=== PATIENT | male | born 1965 | race African-American/Black ===

== ENCOUNTER 2017-03-10 16:03 | Emergency (ER) | payer BC ==
--- NOTE | 2017-03-10 17:59 | RAD ---
TWO VIEW CHEST: History: Cough. Comparison: 06-29-13 FINDINGS: Lung alan are clear. No infiltrate identified. Heart and mediastinum unremarkable. IMPRESSION: No evidence of infiltrates. POS: [facility]
== END 2017-03-10 18:22 | disposition home or self-care (01) ==
LOC: ERS 16:03
DX: J20.9 Acute bronchitis, unspecified (principal); E11.9 Type 2 diabetes mellitus without complications; F17.210 Nicotine dependence, cigarettes, uncomplicated; I10 Essential (primary) hypertension
CPT/HCPCS: 71020; 94640; 99406; J7620

== ENCOUNTER 2017-07-16 18:21 | Emergency (ER) | payer BC ==
[2017-07-16 19:14] LABS: #Eosinphils 0.1 thou/uL (0.0-0.7); #Lymphocytes 2.3 thou/uL (1.20-3.40); #Monocytes 0.6 thou/uL (0.11-0.59); #Neutrophils 4.4 thou/uL (1.40-6.50); %Basophils 0.4 % (0.0-1.0); %Eosinophils 0.7 % (0.0-10.0); %Lymphocytes 30.8 % (21.0-51.0); %Monocytes 8.3 % (0.0-10.0); %Neutrophils 59.9 % (42.0-75.0); Hemoglobin 14.8 g/dL (14.0-18.0); Mean Corpuscular HGB CONC 32.9 g/dL (32.0-36.0); Mean Corpuscular Hemoglobin 29.4 pg (27.0-31.0); Mean Corpuscular Volume 89.4 fl (80.0-94.0); Mean Platelet Volume 7.2 fL (7.4-10.4); Platelet Count 225 thou/uL (130-400); RBC Distribution Width 11.8 % (11.5-14.5); Red Blood Cell (RBC) Count 5.03 mill/uL (4.70-6.10); White Blood Cell (WBC) Count 7.4 thou/uL (4.8-10.8)
[2017-07-16 19:43] LABS: ALT (SGPT) 29 U/L (8-55); AST (SGOT) 18 U/L (5-34); Albumin 4.4 g/dL (3.5-5.0); Alkaline Phosphatase 101 U/L (40-150); Anion Gap 14 mmol/L (10-20); BUN (Urea Nitrogen) 15 mg/dL (8.9-20.6); Bilirubin, Total 0.5 mg/dL (0.2-1.2); Calc. Creatinine Clearance 0 mL/min (70-130); Calcium 9.7 mg/dL (7.8-10.44); Carbon Dioxide 25 mmol/L (22-29); Chloride 102 mmol/L (98-107); Estimated GFR-MDRD Greater than 90; Globulin 3.7 g/dL (2.4-3.5); Glucose 276 mg/dL (70-105); Potassium 4.6 mmol/L (3.5-5.1); Protein, Total 8.1 g/dL (6.0-8.3); Sodium 136 mmol/L (136-145)
== END 2017-07-16 19:55 | disposition home or self-care (01) ==
LOC: ERS 18:21
DX: E11.65 Type 2 diabetes mellitus with hyperglycemia (principal); E78.5 Hyperlipidemia, unspecified; I10 Essential (primary) hypertension; I48.91 Unspecified atrial fibrillation; F17.210 Nicotine dependence, cigarettes, uncomplicated; Z79.899 Other long term (current) drug therapy; Z79.84 Long term (current) use of oral hypoglycemic drugs
CPT/HCPCS: 36415; 36416; 80053; 85025; 99284

== ENCOUNTER 2017-12-13 02:32 | Emergency (ER) | payer BC ==
[2017-12-13] MEDS ORDERED: HYDROcodone/Acetaminophen 5/325 mg Tablet ONE (03:23)
== END 2017-12-13 03:26 | disposition home or self-care (01) ==
LOC: ERS 02:32
DX: L73.2 Hidradenitis suppurativa (principal); E78.5 Hyperlipidemia, unspecified; E11.9 Type 2 diabetes mellitus without complications; Z79.84 Long term (current) use of oral hypoglycemic drugs; I10 Essential (primary) hypertension; I48.91 Unspecified atrial fibrillation; F17.210 Nicotine dependence, cigarettes, uncomplicated; Z79.899 Other long term (current) drug therapy
CPT/HCPCS: 10060

== ENCOUNTER 2017-12-22 15:11 | Emergency (ER) | payer BC ==
--- NOTE | 2017-12-22 15:41 | RAD ---
PA AND LATERAL OF THE CHEST: INDICATION: Cough and wheezing. COMPARISON: Prior exam dated 03/10/17. FINDINGS: There is an area of subsegmental volume loss within the lingula. No airspace consolidation is eviden t. No pleural effusion is noted. Heart size is normal-appearing. No acute osseous abnormality is e vident. IMPRESSION: Area of subsegmental volume loss within the lingula. No additional abnormality is seen. POS: [facility]
== END 2017-12-22 15:58 | disposition home or self-care (01) ==
LOC: SCSER 15:11
DX: J20.9 Acute bronchitis, unspecified (principal); E78.5 Hyperlipidemia, unspecified; E11.9 Type 2 diabetes mellitus without complications; I10 Essential (primary) hypertension; F17.290 Nicotine dependence, other tobacco product, uncomplicated
CPT/HCPCS: 71046; J7620

== ENCOUNTER 2023-02-23 23:31 | Inpatient (IN) | payer SELFPAY ==
[2023-02-24] MEDS ORDERED: Ondansetron PF 4 MG/2 ML Vial IVP PRN (00:22)
[2023-02-24] MEDS ORDERED: Ondansetron ODT 4 MG TAB PO PRN (00:22)
[2023-02-24] MEDS ORDERED: Acetaminophen 325 MG TAB PO PRN (00:22)
[2023-02-24 00:32] VITALS: BMI 34.7
[2023-02-24] MEDS ORDERED: Dextrose 5%-Lactated Ringers 1,000 ML IV SCH (01:00)
[2023-02-24] MEDS ORDERED: Dextrose 5% in Water 1,000 ML IV PRN (01:42)
[2023-02-24] MEDS ORDERED: Glucagon 1 MG/ML KIT IM PRN (01:42)
[2023-02-24] MEDS ORDERED: HumaLOG 300 UNITS/3 ML VIAL SC PRN (01:42)
[2023-02-24] MEDS ORDERED: Dextrose 50% Abboject 50 ML SYRINGE SLOW IVP PRN (01:42)
[2023-02-24] MEDS: HumaLOG 300 UNITS/3 ML VIAL SC PRN ×3 (02:11→17:51)
[2023-02-24] MEDS ORDERED: Ketorolac Tromethamine 30 MG/ML VIAL IVP SCH (02:15)
[2023-02-24] MEDS: Ketorolac Tromethamine 30 MG/ML VIAL IVP PRN ×2 (06:04→12:48)
[2023-02-24 06:48] LABS: #Eosinphils 0.1 thou/uL (0.0-0.7); #Monocytes 0.8 thou/uL (0.11-0.59); #Neutrophils 10.3 thou/uL (1.40-6.50); %Basophils 0.3 % (0.0-1.0); %Eosinophils 0.4 % (0.0-10.0); %Lymphocytes 16.8 % (21.0-51.0); %Neutrophils 76.2 % (42.0-75.0); Hematocrit 41.1 % (42.0-52.0); Hemoglobin 12.6 g/dL (14.0-18.0); Mean Corpuscular HGB CONC 30.7 g/dL (32.0-36.0); Mean Corpuscular Hemoglobin 27.9 pg (27.0-31.0); Mean Corpuscular Volume 90.9 fl (78.0-98.0); Mean Platelet Volume 9.5 fL (7.4-10.4); Platelet Count 247 10x3/uL (130-400); RBC Distribution Width 12.5 % (11.5-14.5); Red Blood Cell (RBC) Count 4.52 mill/uL (4.70-6.10); White Blood Cell (WBC) Count 13.5 10x3/uL (4.8-10.8)
[2023-02-24 07:16] LABS: ALT (SGPT) 10 U/L (8-55); AST (SGOT) 10 U/L (5-34); Albumin 3.6 g/dL (3.5-5.0); Alkaline Phosphatase 79 U/L (40-110); Anion Gap 11 mmol/L (10-20); BUN (Urea Nitrogen) 6 mg/dL (8.4-25.7); Bilirubin, Total 0.6 mg/dL (0.2-1.2); Calc. Creatinine Clearance 190 mL/min (70-130); Calcium 8.9 mg/dL (7.8-10.44); Carbon Dioxide 23 mmol/L (22-29); Chloride 106 mmol/L (98-107); Estimated GFR 107; Globulin 3.7 g/dL (2.4-3.5); Glucose 231 mg/dL (70-105); Potassium 3.6 mmol/L (3.5-5.1); Protein, Total 7.3 g/dL (6.0-8.3); Sodium 136 mmol/L (136-145)
[2023-02-24] MEDS ORDERED: fentaNYL PF 100 MCG/2 ML SYRINGE ONE (08:44)
[2023-02-24] MEDS ORDERED: EPINEPHrine 1 MG/ML VIAL ONE (10:13)
[2023-02-24] MEDS ORDERED: Bupivacaine 0.25% HCL 30 ML VIAL ONE (10:14)
[2023-02-24] MEDS ORDERED: Sodium Chloride 0.9% 100 ML ONE (10:31)
[2023-02-24] MEDS ORDERED: CEFAZOLIN 2 GM VIAL ONE (10:31)
[2023-02-24] MEDS ORDERED: Lidocaine 1% PF 5 ML VIAL ONE (10:42)
[2023-02-24] MEDS ORDERED: Rocuronium Bromide 10 MG/ML (10ML VIAL) ONE (10:42)
[2023-02-24] MEDS ORDERED: PROPOFOL 200 MG/20 ML VIAL ONE (10:42)
[2023-02-24] MEDS ORDERED: Ondansetron PF 4 MG/2 ML Vial ONE (10:42)
[2023-02-24] MEDS ORDERED: NEOSTIGMINE 3 MG/3 ML SYR 3 MG/3 ML SYRINGE ONE (10:42)
[2023-02-24] MEDS ORDERED: Glycopyrrolate 0.2 MG/ML 5 ML SYRINGE ONE (10:42)
[2023-02-24] MEDS ORDERED: Ondansetron HCl/PF 4 MG/2 ML Vial IVP PRN (11:14)
[2023-02-24] MEDS ORDERED: Promethazine HCl 25 MG/ML VIAL IM PRN (11:14)
[2023-02-24] MEDS ORDERED: PACU-Morphine 4MG/ML VIAL SLOW IVP PRN (11:14)
[2023-02-24] MEDS ORDERED: SUGAMMADEX SODIUM 200 MG/2 ML VIAL ONE (11:26)
[2023-02-24] MEDS ORDERED: fentaNYL 50 mcg/mL 1 mL Vial ONE ×3 (11:35→12:10)
[2023-02-24] MEDS: Famotidine 20 MG TAB PO SCH ×2 (12:24→20:16)
[2023-02-24] MEDS: Famotidine/PF 20 mg/2ml Vial SLOW IVP SCH ×2 (12:24→20:17)
[2023-02-24] MEDS: Insulin Glargine 30 UNITS/0.3 ML VIAL SC SCH ×2 (12:24→20:23)
[2023-02-24] MEDS: Lisinopril 20 MG TAB PO SCH (12:24)
[2023-02-24] MEDS ORDERED: Morphine 2 MG/ML VIAL SLOW IVP PRN (13:35)
[2023-02-24] MEDS ORDERED: Vancomycin (BATCH) 2 GM in Premix 1 BAG IVPB SCH (13:45)
[2023-02-24] MEDS ORDERED: Lisinopril 20 MG TAB PO SCH (13:45)
[2023-02-24] MEDS ORDERED: HYDROcodone/Acetaminophen 5/325 mg Tablet PO SCH (13:45)
[2023-02-24] MEDS ORDERED: Piperacillin/Tazobactam 3.375 GM in Sodium Chloride 0.9% 100 ML IVPB SCH ×2 (14:00→20:00)
[2023-02-24] MEDS ORDERED: Clindamycin/D5W 900 MG in Premix 1 BAG IVPB SCH (18:00)
[2023-02-24] MEDS: HYDROcodone/Acetaminophen 5/325 mg Tablet PO PRN (20:14)
[2023-02-24] MEDS: Piperacillin/Tazobactam 3.375 GM in Sodium Chloride 0.9% 100 ML IVPB SCH (20:17)
[2023-02-25] MEDS: HYDROcodone/Acetaminophen 5/325 mg Tablet PO PRN ×2 (04:13→09:33)
[2023-02-25] MEDS ORDERED: Vancomycin (BATCH) 2 GM in Premix 1 BAG IVPB SCH (05:00)
[2023-02-25 06:11] LABS: #Eosinphils 0.1 thou/uL (0.0-0.7); #Monocytes 0.8 thou/uL (0.11-0.59); #Neutrophils 10.1 thou/uL (1.40-6.50); %Basophils 0.2 % (0.0-1.0); %Eosinophils 0.7 % (0.0-10.0); %Lymphocytes 15.6 % (21.0-51.0); %Neutrophils 77.1 % (42.0-75.0); Hematocrit 37.5 % (42.0-52.0); Hemoglobin 11.8 g/dL (14.0-18.0); Mean Corpuscular HGB CONC 31.5 g/dL (32.0-36.0); Mean Corpuscular Hemoglobin 28.1 pg (27.0-31.0); Mean Corpuscular Volume 89.3 fl (78.0-98.0); Mean Platelet Volume 9.7 fL (7.4-10.4); Platelet Count 259 10x3/uL (130-400); RBC Distribution Width 12.2 % (11.5-14.5); White Blood Cell (WBC) Count 13.1 10x3/uL (4.8-10.8)
[2023-02-25] MEDS: Piperacillin/Tazobactam 3.375 GM in Sodium Chloride 0.9% 100 ML IVPB SCH (06:27)
[2023-02-25] MEDS: HumaLOG 300 UNITS/3 ML VIAL SC PRN ×2 (06:30→12:03)
[2023-02-25 06:31] LABS: Anion Gap 12 mmol/L (10-20); BUN (Urea Nitrogen) 7 mg/dL (8.4-25.7); Calc. Creatinine Clearance 183 mL/min (70-130); Calcium 8.4 mg/dL (7.8-10.44); Carbon Dioxide 24 mmol/L (22-29); Chloride 104 mmol/L (98-107); Estimated GFR 106; Glucose 217 mg/dL (70-105); Potassium 3.9 mmol/L (3.5-5.1); Sodium 136 mmol/L (136-145)
[2023-02-25] MEDS: Lisinopril 20 MG TAB PO SCH (09:33)
[2023-02-25] MEDS: Famotidine 20 MG TAB PO SCH (09:33)
[2023-02-25] MEDS: Insulin Glargine 30 UNITS/0.3 ML VIAL SC SCH (09:34)
[2023-02-25] MEDS: Famotidine/PF 20 mg/2ml Vial SLOW IVP SCH (12:00)
[2023-02-25 12:08] VITALS: BP 178/92; TEMP 98
== END 2023-02-25 14:25 | disposition home or self-care (01) | DRG 581 ==
LOC: SJJU 02-24 00:10 → OBSVTOIN 02-24 13:39
PROVIDERS: ADMIT Student in an Organized Health Care Education/Training Program; ATTEND Family Medicine
PROC: 0W960ZZ Drainage of Neck, Open Approach (ICD-10-PCS; principal; 2023-02-24)
DX: L02.11 Cutaneous abscess of neck (principal); E11.9 Type 2 diabetes mellitus without complications; I10 Essential (primary) hypertension; E78.5 Hyperlipidemia, unspecified; F17.210 Nicotine dependence, cigarettes, uncomplicated; Z91.018 Allergy to other foods; Z79.4 Long term (current) use of insulin; Z79.899 Other long term (current) drug therapy
CPT/HCPCS: 36415; 36416; 80048; 80053; 85025; 87070; 87077; 87186; 87205; 93005; 93010; 96374; 96376; 97139; G0378; J0171; J1815; J1885; J2272; J2405; J2543; J2704; J3010; J3370; J3490; Q0162; S0020

== ENCOUNTER 2023-05-04 17:26 | Inpatient (IN) | payer OTHER ==
[2023-05-04] MEDS ORDERED: Ondansetron ODT 4 MG TAB PO PRN (21:34)
[2023-05-04] MEDS ORDERED: Acetaminophen 650 MG Suppository PR PRN (21:34)
[2023-05-04] MEDS ORDERED: Acetaminophen 325 MG TAB PO PRN (21:34)
[2023-05-04] MEDS ORDERED: Ondansetron PF 4 MG/2 ML Vial IVP PRN (21:34)
[2023-05-04] MEDS: Morphine 4 MG/ML VIAL SLOW IVP PRN (21:38)
[2023-05-04 21:58] VITALS: BMI 33.6
[2023-05-05] MEDS ORDERED: Piperacillin/Tazobactam 3.375 GM in Sodium Chloride 0.9% 100 ML IVPB SCH (00:30)
[2023-05-05] MEDS: Sodium Chloride 0.9% 1,000 ML IV SCH ×2 (01:51→09:23)
[2023-05-05] MEDS: Insulin Glargine 30 UNITS/0.3 ML VIAL SC SCH ×3 (01:52→22:36)
[2023-05-05] MEDS: Morphine 4 MG/ML VIAL SLOW IVP PRN (02:45)
[2023-05-05] MEDS: Piperacillin/Tazobactam 3.375 GM in Sodium Chloride 0.9% 100 ML IVPB SCH ×3 (05:55→22:36)
[2023-05-05 06:29] LABS: #Monocytes 0.8 thou/uL (0.11-0.59); #Neutrophils 8.6 thou/uL (1.40-6.50); %Basophils 0.2 % (0.0-1.0); %Eosinophils 0.3 % (0.0-10.0); %Lymphocytes 20.8 % (21.0-51.0); %Monocytes 6.3 % (0.0-10.0); %Neutrophils 72.1 % (42.0-75.0); Hematocrit 42.3 % (42.0-52.0); Hemoglobin 13.5 g/dL (14.0-18.0); Mean Corpuscular HGB CONC 31.9 g/dL (32.0-36.0); Mean Corpuscular Hemoglobin 28.1 pg (27.0-31.0); Mean Corpuscular Volume 87.9 fl (78.0-98.0); Mean Platelet Volume 9.8 fL (7.4-10.4); Platelet Count 304 10x3/uL (130-400); RBC Distribution Width 12.2 % (11.5-14.5); Red Blood Cell (RBC) Count 4.81 mill/uL (4.70-6.10)
[2023-05-05 06:39] LABS: Hemoglobin A1c 11.8 % (4.0-6.0)
[2023-05-05 07:40] LABS: Anion Gap 10 mmol/L (10-20); BUN (Urea Nitrogen) 8 mg/dL (8.4-25.7); Calc. Creatinine Clearance 171 mL/min (70-130); Calcium 8.5 mg/dL (7.8-10.44); Carbon Dioxide 24 mmol/L (22-29); Chloride 104 mmol/L (98-107); Estimated GFR 104; Glucose 226 mg/dL (70-105); Potassium 3.7 mmol/L (3.5-5.1); Sodium 134 mmol/L (136-145)
[2023-05-05] MEDS ORDERED: FLU VACC QS2023-24(6MOS UP)/PF 60 MCG/0.5 ML SYRINGE IM ONE (09:00)
[2023-05-05] MEDS ORDERED: Lisinopril 20 MG TAB PO SCH (09:00)
[2023-05-05] MEDS: Lisinopril 20 MG TAB PO SCH (09:24)
[2023-05-05] MEDS ORDERED: VANCOMYCIN IVPB PRN (13:11)
[2023-05-05] MEDS ORDERED: Glucagon 1 MG/ML KIT IM PRN (13:34)
[2023-05-05] MEDS ORDERED: Dextrose 50% Abboject 50 ML SYRINGE SLOW IVP PRN (13:34)
[2023-05-05] MEDS ORDERED: Dextrose 5% in Water 1,000 ML IV PRN (13:34)
[2023-05-05] MEDS: Vancomycin (BATCH) 1.5 GM in Premix 1 BAG IVPB SCH (15:04)
[2023-05-05] MEDS ORDERED: Lidocaine 1% PF 5 ML VIAL ONE (15:49)
[2023-05-05] MEDS ORDERED: PROPOFOL 40 ML ONE (15:49)
[2023-05-05] MEDS ORDERED: Rocuronium Bromide 10 MG/ML (10ML VIAL) ONE (15:49)
[2023-05-05] MEDS ORDERED: Dexamethasone 4 mg/ml Vial ONE (15:49)
[2023-05-05] MEDS ORDERED: SUGAMMADEX SODIUM 200 MG/2 ML VIAL ONE (15:49)
[2023-05-05] MEDS ORDERED: Ondansetron PF 4 MG/2 ML Vial ONE ×2 (15:49→17:19)
[2023-05-05] MEDS ORDERED: fentaNYL 50 mcg/mL 1 mL Vial ONE ×3 (15:50→17:18)
[2023-05-05] MEDS ORDERED: Bupivacaine PF 0.5% 30 ML VIAL ONE (16:33)
[2023-05-05] MEDS ORDERED: EPINEPHrine 1 MG/ML VIAL ONE (16:33)
[2023-05-05] MEDS ORDERED: Lidocaine 2% 6 ML (Jelly) SYR ONE (16:48)
[2023-05-05] MEDS ORDERED: Ibuprofen 100 MG/5 ML UDCUP PO PRN (17:34)
[2023-05-05] MEDS ORDERED: Acetaminophen 500 MG TAB PO SCH (17:45)
[2023-05-05] MEDS: traMADol HCl 50 MG TAB PO PRN (17:55)
[2023-05-05] MEDS: Acetaminophen 500 MG TAB PO SCH (22:34)
[2023-05-06] MEDS: Vancomycin (BATCH) 1.5 GM in Premix 1 BAG IVPB SCH ×2 (02:15→14:26)
[2023-05-06 04:50] LABS: #Monocytes 1.3 thou/uL (0.11-0.59); #Neutrophils 11.4 thou/uL (1.40-6.50); %Basophils 0.2 % (0.0-1.0); %Eosinophils 0.1 % (0.0-10.0); %Lymphocytes 15.8 % (21.0-51.0); %Monocytes 8.2 % (0.0-10.0); %Neutrophils 75.2 % (42.0-75.0); Hematocrit 43.9 % (42.0-52.0); Hemoglobin 13.7 g/dL (14.0-18.0); Mean Corpuscular HGB CONC 31.2 g/dL (32.0-36.0); Mean Corpuscular Hemoglobin 27.7 pg (27.0-31.0); Mean Corpuscular Volume 88.9 fl (78.0-98.0); Mean Platelet Volume 9.9 fL (7.4-10.4); Platelet Count 313 10x3/uL (130-400); RBC Distribution Width 12.4 % (11.5-14.5); Red Blood Cell (RBC) Count 4.94 mill/uL (4.70-6.10); White Blood Cell (WBC) Count 15.2 10x3/uL (4.8-10.8)
[2023-05-06 05:16] LABS: Anion Gap 14 mmol/L (10-20); BUN (Urea Nitrogen) 17 mg/dL (8.4-25.7); Calc. Creatinine Clearance 66 mL/min (70-130); Calcium 8.5 mg/dL (7.8-10.44); Carbon Dioxide 25 mmol/L (22-29); Chloride 103 mmol/L (98-107); Estimated GFR 38; Glucose 294 mg/dL (70-105); Sodium 138 mmol/L (136-145)
[2023-05-06] MEDS: Piperacillin/Tazobactam 3.375 GM in Sodium Chloride 0.9% 100 ML IVPB SCH ×2 (05:50→12:12)
[2023-05-06] MEDS: Acetaminophen 500 MG TAB PO SCH ×4 (08:51→20:40)
[2023-05-06] MEDS: Lisinopril 20 MG TAB PO SCH (08:52)
[2023-05-06] MEDS: Morphine 4 MG/ML VIAL SLOW IVP PRN (08:52)
[2023-05-06] MEDS: Insulin Glargine 30 UNITS/0.3 ML VIAL SC SCH ×2 (08:52→20:40)
[2023-05-06] MEDS: Sodium Chloride 0.9% 1,000 ML IV SCH ×2 (10:24→20:42)
[2023-05-06] MEDS: HumaLOG 300 UNITS/3 ML VIAL SC PRN ×2 (11:47→16:06)
[2023-05-06] MEDS: traMADol HCl 50 MG TAB PO PRN ×2 (12:12→20:44)
[2023-05-07 02:19] LABS: #Neutrophils 8.9 thou/uL (1.40-6.50); %Basophils 0.2 % (0.0-1.0); %Eosinophils 0.2 % (0.0-10.0); %Lymphocytes 18.1 % (21.0-51.0); %Monocytes 8.4 % (0.0-10.0); %Neutrophils 72.7 % (42.0-75.0); Hematocrit 42.6 % (42.0-52.0); Hemoglobin 13.3 g/dL (14.0-18.0); Mean Corpuscular HGB CONC 31.2 g/dL (32.0-36.0); Mean Corpuscular Hemoglobin 27.7 pg (27.0-31.0); Mean Corpuscular Volume 88.6 fl (78.0-98.0); Mean Platelet Volume 9.7 fL (7.4-10.4); Platelet Count 315 10x3/uL (130-400); RBC Distribution Width 12.5 % (11.5-14.5); Red Blood Cell (RBC) Count 4.81 mill/uL (4.70-6.10); White Blood Cell (WBC) Count 12.2 10x3/uL (4.8-10.8)
[2023-05-07 02:38] LABS: Vancomycin, Trough 24.1 ug/mL
[2023-05-07 03:40] LABS: Anion Gap 12 mmol/L (10-20); BUN (Urea Nitrogen) 22 mg/dL (8.4-25.7); CRP (Inflammatory) 11.74 mg/dL (= or < 0.5); Calc. Creatinine Clearance 52 mL/min (70-130); Calcium 8.2 mg/dL (7.8-10.44); Carbon Dioxide 23 mmol/L (22-29); Chloride 107 mmol/L (98-107); Estimated GFR 28; Glucose 271 mg/dL (70-105); Potassium 3.7 mmol/L (3.5-5.1); Sodium 138 mmol/L (136-145)
[2023-05-07] MEDS: HumaLOG 300 UNITS/3 ML VIAL SC PRN ×3 (06:23→17:13)
[2023-05-07] MEDS: Vancomycin (BATCH) 1.5 GM in Premix 1 BAG IVPB SCH (07:15)
[2023-05-07] MEDS: Insulin Glargine 30 UNITS/0.3 ML VIAL SC SCH ×2 (08:52→21:04)
[2023-05-07] MEDS: Vancomycin 1 GM in Premix 1 BAG IVPB SCH ×2 (08:53→21:04)
[2023-05-07] MEDS: Lisinopril 20 MG TAB PO SCH (08:53)
[2023-05-07] MEDS: Acetaminophen 500 MG TAB PO SCH ×4 (08:53→21:03)
[2023-05-07] MEDS: traMADol HCl 50 MG TAB PO PRN (21:04)
[2023-05-08] MEDS: traMADol HCl 50 MG TAB PO PRN ×2 (02:08→12:22)
[2023-05-08] MEDS: Insulin Glargine 30 UNITS/0.3 ML VIAL SC SCH (08:17)
[2023-05-08] MEDS: Lisinopril 20 MG TAB PO SCH (08:18)
[2023-05-08] MEDS: Acetaminophen 500 MG TAB PO SCH ×2 (08:18→12:43)
[2023-05-08] MEDS: Vancomycin 1 GM in Premix 1 BAG IVPB SCH (08:19)
[2023-05-08 08:50] LABS: #Monocytes 0.8 thou/uL (0.11-0.59); #Neutrophils 6.2 thou/uL (1.40-6.50); %Basophils 0.2 % (0.0-1.0); %Eosinophils 0.3 % (0.0-10.0); %Lymphocytes 27.1 % (21.0-51.0); %Monocytes 8.2 % (0.0-10.0); %Neutrophils 63.9 % (42.0-75.0); Hematocrit 40.2 % (42.0-52.0); Hemoglobin 12.4 g/dL (14.0-18.0); Mean Corpuscular HGB CONC 30.8 g/dL (32.0-36.0); Mean Corpuscular Hemoglobin 27.7 pg (27.0-31.0); Mean Corpuscular Volume 89.7 fl (78.0-98.0); Mean Platelet Volume 9.1 fL (7.4-10.4); Platelet Count 326 10x3/uL (130-400); RBC Distribution Width 12.6 % (11.5-14.5); Red Blood Cell (RBC) Count 4.48 mill/uL (4.70-6.10); White Blood Cell (WBC) Count 9.6 10x3/uL (4.8-10.8)
[2023-05-08 09:12] LABS: ALT (SGPT) 24 U/L (8-55); AST (SGOT) 25 U/L (5-34); Albumin 3.2 g/dL (3.5-5.0); Alkaline Phosphatase 94 U/L (40-110); Anion Gap 9 mmol/L (10-20); BUN (Urea Nitrogen) 22 mg/dL (8.4-25.7); Bilirubin, Total 0.8 mg/dL (0.2-1.2); Calc. Creatinine Clearance 50 mL/min (70-130); Calcium 8.7 mg/dL (7.8-10.44); Carbon Dioxide 30 mmol/L (22-29); Chloride 107 mmol/L (98-107); Estimated GFR 27; Globulin 4.8 g/dL (2.4-3.5); Glucose 179 mg/dL (70-105); Potassium 3.8 mmol/L (3.5-5.1); Sodium 142 mmol/L (136-145)
[2023-05-08] MEDS ORDERED: Vancomycin Dose by Levels Sliding Scale (Wt > 99) FS SCH (12:30)
[2023-05-08] MEDS: HumaLOG 300 UNITS/3 ML VIAL SC PRN (12:42)
[2023-05-08 13:45] VITALS: BP 175/92; TEMP 97.6
== END 2023-05-08 15:25 | disposition home or self-care (01) | DRG 572 ==
LOC: INTOOBSV 17:26 → T4-A 17:26 → OBSVTOIN 05-05 13:03
PROVIDERS: ADMIT Internal Medicine; ATTEND Hospitalist
PROC: 0JB50ZZ Excision of Left Neck Subcutaneous Tissue and Fascia, Open Approach (ICD-10-PCS; principal; 2023-05-05)
PROC: 0JB40ZZ Excision of Right Neck Subcutaneous Tissue and Fascia, Open Approach (ICD-10-PCS; 2023-05-05)
PROC: 3E033XZ Introduction of Vasopressor into Peripheral Vein, Percutaneous Approach (ICD-10-PCS; 2023-05-05)
DX: L02.11 Cutaneous abscess of neck (principal); L08.9 Local infection of the skin and subcutaneous tissue, unspecified; E11.65 Type 2 diabetes mellitus with hyperglycemia; G47.33 Obstructive sleep apnea (adult) (pediatric); I10 Essential (primary) hypertension; F17.210 Nicotine dependence, cigarettes, uncomplicated; F10.90 Alcohol use, unspecified, uncomplicated; B95.8 Unspecified staphylococcus as the cause of diseases classified elsewhere; E66.01 Morbid (severe) obesity due to excess calories; Z98.890 Other specified postprocedural states; Z68.33 Body mass index [BMI] 33.0-33.9, adult; Z79.4 Long term (current) use of insulin; Z91.018 Allergy to other foods; Z79.899 Other long term (current) drug therapy
CPT/HCPCS: 36415; 36416; 80048; 80053; 80202; 83036; 85025; 86140; 97139; J0171; J1100; J1815; J2270; J2405; J2543; J2704; J3010; J3370; J3370-JW; J3490; J7050; Q0162; S0020

== ENCOUNTER 2023-05-17 13:56 | Emergency (ER) | payer OTHER | END 2023-05-17 16:29 | disposition home or self-care (01) | LOC: ERS 13:56 | DX: Z48.01 Encounter for change or removal of surgical wound dressing (principal); E11.9 Type 2 diabetes mellitus without complications; I10 Essential (primary) hypertension; F17.290 Nicotine dependence, other tobacco product, uncomplicated; Z79.84 Long term (current) use of oral hypoglycemic drugs | CPT/HCPCS: 99282 ==